=== PATIENT | female | born 1995 | race African-American/Black ===

== ENCOUNTER 2020-05-19 17:01 | Emergency (ER) | payer SELFPAY ==
[~2020-05-19] VITALS: Ht 160 cm; Wt 77.1 kg
[2020-05-19] MEDS ORDERED: SODIUM CHLORIDE 0.9% 1000ML 1,000 ML IV STA (18:36)
[2020-05-19] MEDS ORDERED: MECLIZINE HCL 12.5 MG TAB PO ONE (18:45)
[2020-05-19 19:30] LABS: BASOPHILS % 0.4 % (0.0-1.0); EOSINOPHILS # (AUTO) 0.3 (0.0-0.4); EOSINOPHILS % 4.3 % (0.0-6.0); HEMATOCRIT 38.7 % (34.2-44.1); LYMPHOCYTES % 42.1 % (18.0-39.1); MEAN CORPUSCULAR HEMOGLOBIN 29.6 pg (28-32); MEAN CORPUSCULAR HGB CONC 33.6 g/dL (31-35); MEAN CORPUSCULAR VOLUME 88.2 fL (81-99); MONOCYTES # (AUTO) 0.5 (0.2-0.8); MONOCYTES % 7.3 % (4.4-11.3); NEUTROPHILS # (AUTO) 3.3 (2.1-6.9); NEUTROPHILS % 45.6 % (38.7-80.0); PLATELET COUNT 255 x10e3/uL (140-360); RED BLOOD COUNT 4.39 x10e6/uL (3.6-5.1); RED CELL DISTRIBUTION WIDTH 12.4 % (11.7-14.4)
[2020-05-19 19:51] LABS: ALANINE AMINOTRANSFERASE 7 IU/L (0-55); ALBUMIN 3.5 g/dL (3.5-5.0); ALBUMIN/GLOBULIN RATIO 1.2 (0.8-2.0); ALKALINE PHOSPHATASE 65 IU/L (40-150); ANION GAP 13.8 mmol/L (8-16); BLOOD UREA NITROGEN 16 mg/dL (7-26); BUN/CREATININE RATIO 21 (6-25); CALCIUM 8.8 mg/dL (8.4-10.2); CARBON DIOXIDE 22 mmol/L (22-29); CHLORIDE 107 mmol/L (98-107); CREATINE KINASE 58 IU/L (29-168); CREATININE, SERUM 0.76 mg/dL (0.57-1.11); EST GLOMERULAR FILTRATION RATE > 60 ML/MIN (60-); GLUCOSE 74 mg/dL (74-118); POTASSIUM 3.8 mmol/L (3.5-5.1); SODIUM 139 mmol/L (136-145)
[2020-05-19] MEDS ORDERED: MECLIZINE HCL12.5 MG PO (20:42)
[2020-05-19] MEDS ORDERED: ZOFRAN4 MG SL (20:42)
[2020-05-19 20:58] VITALS: BP 111/72
== END 2020-05-19 20:53 | disposition home or self-care (01) ==
LOC: ER 17:45
DX: H81.10 Benign paroxysmal vertigo, unspecified ear (principal)
CPT/HCPCS: 36415; 70450; 70486; 80053; 82550; 82553; 84484; 84702; 85025; 99284; J8597

== ENCOUNTER 2024-01-26 08:13 | Emergency (ER) | payer OTHER ==
[~2024-01-26] VITALS: Ht 160 cm; Wt 77.1 kg
[~2024-01-26 08:13] MED LIST: MECLIZINE HCL12.5 MG PO; ZOFRAN4 MG SL
[2024-01-26 08:20] VITALS: PULSE 91; RESP 17; TEMP 97.9; O2SAT 100
[2024-01-26] MEDS: CYCLOBENZAPRINE HCL 10 MG TAB PO ONE (08:54)
[2024-01-26] MEDS: KETOROLAC TROMETHAMINE 60 MG/2 ML VIAL IM ONE (08:54)
[2024-01-26] MEDS ORDERED: CYCLOBENZAPRINE10 MG PO (09:44)
== END 2024-01-26 09:58 | disposition home or self-care (01) ==
LOC: ER 08:19
DX: M54.50 Low back pain, unspecified (principal)
CPT/HCPCS: 99283; J1885